=== PATIENT | male | born 1960 | race Caucasian/White ===

== ENCOUNTER 2019-05-14 19:03 | Emergency (ER) | payer BC, SELFPAY ==
--- NOTE | 2019-05-14 19:10 | DI.RAD.S_ITS ---
PROCEDURE: XR CHEST 1V INDICATIONS: chest pain TECHNIQUE: One view of the chest was acquired. COMPARISON: None. FINDINGS: Surgical changes and devices: None. Lungs and pleura: Lungs are clear. No pleural effusions or pneumothorax. Mediastinum: Mediastinal contours appear normal. Heart size is normal. Bones and chest wall: No suspicious bony lesions. Overlying soft tissues appear unremarkable. IMPRESSION: No acute cardiopulmonary abnormalities. No focal consolidation. Dictated by: Osmar Roberts M.D. on 05/14/2019 at 19:50 Approved by: Osmar Roberts M.D. on 05/14/2019 at 19:50
[2019-05-14 19:11] VITALS: BP 183/99; PULSE 117; RESP 22; TEMP 36.6; O2SAT 100
--- NOTE | 2019-05-14 19:12 | ED.CHESTPAIN ---
HPI - Chest Pain General Chief Complaint: Chest Pain Stated Complaint: chest pain Time Seen by Provider: 05/14/19 19:04 Source: patient and family Mode of arrival: Ambulatory Limitations: no limitations History of Present Illness HPI narrative: 58-year-old male former smoker with hyperlipidemia presents with a chief complaint of left anterior chest pressure with radiation to his left shoulder and axilla that started this morning at rest at about 10:00 a.m.. At worst it was a 6/10 and currently it is 1/10. It has not really gone away over the course of the day but it did start increasing again this evening. He denies provocation or palliation. He denies associated symptoms such as diaphoresis, dizziness, weakness, lightheadedness, shortness of breath. He did recently travel from the [facility] for a wedding. He denies any recent injuries or history of blood clot. He did have an extensive cardiac workup 2 years ago including a negative heart catheterization MD complaint: chest pain Onset (ago): hour(s) Duration: intermittent Onset: during rest Pain location: left chest Severity: moderate Relieving factors: nothing Exacerbating factors: nothing Treatments prior to arrival chest pain: none Related Data Home Medications Medication Instructions Recorded Confirmed atorvastatin 80 mg PO DAILY 05/14/19 05/14/19 Allergies Allergy/AdvReac Type Severity Reaction Status Date / Time No Known Drug Allergies Allergy Verified 05/14/19 19:14 Review of Systems Constitutional Constitutional: Denies chills, Denies fatigue, Denies fever(s), Denies frequent falls, Denies lethargy and Denies weakness Eyes Eyes: Denies change in vision, Denies eye discharge, Denies irritation and Denies loss of vision ENT Ears, Nose, Mouth, and Throat: Denies change in voice, Denies dizziness, Denies neck pain, Denies sore throat and Denies throat swelling Cardiovascular Cardiovascular: Reports chest pain, Denies irregular heart rhythm, Denies lightheadedness, Denies palpitations, Denies dyspnea, Denies dyspnea on exertion and Denies orthopnea Respiratory Respiratory: Denies cough, Denies dyspnea, Denies dyspnea on exertion and Denies wheezing Gastrointestinal Gastrointestinal: Denies abdominal pain, Denies change in bowel habits, Denies diarrhea, Denies nausea and Denies vomiting Genitourinary Genitourinary: Denies hematuria, Denies flank pain, Denies urinary incontinence and Denies urinary urgency Musculoskeletal Musculoskeletal: Denies back pain, Denies muscle weakness, Denies neck pain, Denies numbness and Denies tingling Integumentary/Breasts Skin/Breast: Denies pruritus, Denies erythema, Denies rash and Denies wounds Neurologic Neurologic: Denies behavioral changes, Denies confusion, Denies dizziness, Denies frequent falls, Denies loss of vision, Denies numbness, Denies tingling and Denies weakness Psychiatric Psychiatric: Denies anxiety, Denies behavioral changes, Denies confusion, Denies depression, Denies homicidal ideation and Denies suicidal ideation Endocrine Endocrine: Denies fatigue, Denies flushing and Denies palpitations Hematologic/Lymphatic Hematologic/Lymphatic: Denies easy bruising Allergic/Immunologic Allergic/Immunologic: Denies urticaria, Denies throat swelling and Denies wheezing Patient History Medical History High cholesterol (Acute) Social History Smoking Status: Former smoker Exam Narrative Exam Narrative: GENERAL: [58] year old patient appears stated age. Well-nourished, well-developed patient, in mild distress. HEAD: Atraumatic. Normocephalic. EYES: Pupils equal round and reactive. Extraocular motions intact. No scleral icterus. No injection or drainage. ENT: Nose without bleeding, purulent drainage. Throat without erythema, tonsillar hypertrophy or exudate. Airway patent. NECK: Trachea midline. Non tender CARDIOVASCULAR: Regular rate and rhythm without murmurs, gallops, or rubs. RESPIRATORY: Clear to auscultation. Breath sounds equal bilaterally. No wheezes, rales, or rhonchi. GASTROINTESTINAL: Abdomen soft, non-tender, nondistended. EXTREMITIES: No edema or joint tenderness. BACK: Nontender without deformity or crepitance. No flank tenderness. NEURO: AOx3. SKIN: No rash or erythema of visible areas Initial Vital Signs Initial Vital Signs: Vital Signs Temperature 97.8 F 05/14/19 19:11 Pulse Rate 117 H 05/14/19 19:11 Respiratory Rate 22 05/14/19 19:11 Blood Pressure 183/99 H 05/14/19 19:11 Pulse Oximetry 100 05/14/19 19:11 Scores HEART Score Heart Score history: Slightly Suspicious Heart Score EKG: Normal Heart Score Age: 45-64 years old Heart Score risk factors: 1-2 risk factors Heart Score troponin: < or = to normal limit Heart Score Total: 2 Course Course Course Narrative: Patient remains symptom-free. I have discussed this case with on-call Cardiology (Kerline) at [facility] and we sure the opinion that with a low heart score, no ongoing symptoms, nonischemic EKGs and a normal troponin that this patient is appropriate for discharge. He will start taking a baby aspirin daily and follow closely, he and understand return precautions and the importance of close follow-up, in the next few days for a likely outpatient stress test and echocardiogram. Orders Ordered: ED Orders 05/14/19 19:10 XR chest 1V Stat EKG-12 Lead Stat 05/14/19 19:15 B Type Natriuretic Peptide Stat Complete Blood Count AUTO DIFF Stat Comprehensive Metabolic Panel Stat D Dimer Stat Lipase Stat Troponin & CK Cardiac Panel Stat Discontinued Medications Aspirin (Aspirin Chew) 324 mg PO NOW ONE Stop: 05/14/19 19:11 Last Admin: 05/14/19 19:27 Dose: 324 mg Documented by: ISAIAS Sodium Chloride (Normal Saline 0.9%) 1,000 mls @ 150 mls/hr IV CONT ARIANNA Last Infusion: 05/14/19 20:18 Dose: 0 mls/hr Documented by: Admin: 05/14/19 19:27 Dose: 150 mls/hr Documented by: ISAIAS Metoprolol Tartrate (Lopressor) 5 mg IV NOW ONE Stop: 05/14/19 19:11 Last Admin: 05/14/19 19:45 Dose: 5 mg Documented by: ISAIAS Nitroglycerin (Nitrostat) 0.4 mg SL [id number] PRN PRN Reason: Chest Pain Last Admin: 05/14/19 19:26 Dose: 0.4 mg Documented by: ISAIAS Vital Signs Vital signs: Vital Signs - 8 hr 05/14/19 19:49 Pulse Rate 85 Respiratory Rate 17 Blood Pressure [Right Arm] 149/90 H Pulse Oximetry 96 MDM - Chest Pain Lab Data Result diagrams: 05/14/19 19:15 05/14/19 19:15 Labs: Lab Results 05/14/19 05/14/19 05/14/19 Range/Units 19:15 19:15 19:15 WBC 9.7 (4.5-11.0) X10^3/uL RBC 5.15 (4.5-5.9) X10^6/uL Hgb 17.0 (13.5-17.5) g/dL Hct 49.6 (41-53) % MCV 96.3 (80-100) fL MCH 32.9 (26-34) PG MCHC 34.2 (30-36) % RDW 14.0 (11.6-14.8) % Plt Count 248 (150-400) X10^3/uL Neut % (Auto) 76.7 H (50-75) % Lymph % (Auto) 15.2 L (25-40) % Vermilion % (Auto) 7.4 (3-14) % Eos % (Auto) 0.2 L (2-4) % Baso % (Auto) 0.5 (0-2) % Neut # (Auto) 7400 H (8714-7854) /uL Lymph # (Auto) 1500 (8629-7937) /uL Vermilion # (Auto) 700 (0-900) /uL Eos # (Auto) 0 (0-450) /uL Baso # (Auto) 100 (0-100) /uL D-Dimer < 200 (<230) ng/mL Sodium 139 (137-145) mmol/L Potassium 4.2 (3.4-5.1) mmol/L Chloride 99 (98-107) mmol/L Carbon Dioxide 26 (22-32) mmol/L BUN 11 (9-20) mg/dL Creatinine 0.90 (0.66-1.25) mg/dL Estimated GFR > 60.0 (>60) mL/min BUN/Creatinine Ratio 12.2 (6-22) Glucose 118 H (70-100) mg/dL Calcium 11.1 H (8.4-10.2) mg/dL Total Bilirubin 0.9 (0.2-1.3) mg/dL AST 37 (17-59) IU/L ALT 38 (<50) IU/L Alkaline Phosphatase 74 (38-126) U/L Total Creatine Kinase 184 H (55-170) U/L CK-MB (CK-2) 0.55 (<2.37) ng/mL CK-MB (CK-2) Rel Index 0.3 L (1.5-5.0) % Troponin I < 0.012 (0.01-0.034) ng/mL B-Natriuretic Peptide < 100 (<100) Total Protein 8.6 H (6.3-8.2) g/dL Albumin 5.3 H (3.5-5.0) g/dL Globulin 3.3 (1.7-4.1) g/dL Albumin/Globulin Ratio 1.6 (1.0-2.8) Lipase 177 (23-300) U/L ECG Data Attestation: I personally reviewed and interpreted this ECG as follows: Prior ECG tracings: not available for review Interpretation: EKG is normal sinus rhythm rate [90] and free of any signs of ischemia or ectopy. No ST segmental elevation or depression. No T wave inversions MDM Narrative Medical decision making narrative: Multiple causes of chest pain considered including VA, PE, pneumothorax, pneumonia, aortic dissection, and pleurisy. Patient reports no radiation, no diaphoresis, no provocation with exertion, and no vomiting Patient's symptoms improved or duration of stay with above-stated therapies. Findings and discharge diagnosis discussed with patient/family followed by verbalization of understanding Return precautions discussed with patient/family whom verbalize understanding. Discharge Plan Departure Patient Disposition: Home Clinical Impression: Atypical chest pain Discharge Date/Time: 05/14/19 20:19 Instructions: DI for Atypical Chest Pain Activity Restrictions/Additional Instructions: *You have been diagnosed with [atypical chest pain] *What to do: *Take medications as directed: Aspirin 81mg PO daily. Rolaids as needed. Avoid caffeine, alcohol and nicotine. *Follow up with your primary care provider in 2-3 days, call for an appointment. Let them know you were seen in the Emergency Department and that we ask that you be seen in follow up. It seems very likely that they will set you up with an outpatient stress test and/or echo *Return to ER if you should have any new, worsening or concerning symptoms, such as [increasing pain, shortness of breath, nausea, vomiting, sweating for no apparent reason or unexplained fatigue.] Prescriptions: No Action atorvastatin 80 mg tablet 80 mg PO DAILY RF: 0
[2019-05-14 19:26] VITALS: BP 183/99; PULSE 101
[2019-05-14 19:26] LABS: Add Manual Diff / Slide Review NO; Basophils Absolute Auto 100 /uL (0-100); Basophils Percent Auto 0.5 % (0-2); Eosinophils Absolute Auto 0 /uL (0-450); Eosinophils Percent Auto 0.2 % (2-4); Hematocrit 49.6 % (41-53); Lymphocytes Absolute Auto 1500 /uL (1100-4500); Lymphocytes Percent Auto 15.2 % (25-40); Mean Corpuscular HGB Conc 34.2 % (30-36); Mean Corpuscular Hemoglobin 32.9 PG (26-34); Mean Corpuscular Volume 96.3 fL (80-100); Monocytes Absolute Auto 700 /uL (0-900); Monocytes Percent Auto 7.4 % (3-14); Neutrophils Absolute Auto 7400 /uL (1500-7000); Neutrophils Percent Auto 76.7 % (50-75); Platelet Count 248 X10^3/uL (150-400); Red Blood Cell Count 5.15 X10^6/uL (4.5-5.9); White Blood Cell Count 9.7 X10^3/uL (4.5-11.0)
[2019-05-14] MEDS: NITROGLYCERIN 0.4 MG SL TAB SL (19:26)
[2019-05-14] MEDS: ASPIRIN 81 MG CHEW TAB 324 MG PO (19:27)
[2019-05-14] MEDS: SODIUM CHLORIDE 0.9% 1,000 ML 150 ML IV (19:27)
[2019-05-14 19:33] LABS: Alanine Aminotransferase 38 IU/L (<50); Albumin 5.3 g/dL (3.5-5.0); Albumin Globulin Ratio 1.6 (1.0-2.8); Alkaline Phosphatase 74 U/L (38-126); Aspartate Aminotransferase 37 IU/L (17-59); BUN Creatinine Ratio 12.2 (6-22); Bilirubin Total 0.9 mg/dL (0.2-1.3); Blood Urea Nitrogen 11 mg/dL (9-20); Calcium 11.1 mg/dL (8.4-10.2); Carbon Dioxide 26 mmol/L (22-32); Chloride 99 mmol/L (98-107); Creatine Kinase 184 U/L (55-170); D Dimer < 200 ng/mL (<230); Estimated Glomerular Filt Rate > 60.0 mL/min (>60); Globulin 3.3 g/dL (1.7-4.1); Glucose 118 mg/dL (70-100); HEMOLYSIS 46 (0-50); Lipase 177 U/L (23-300); Potassium 4.2 mmol/L (3.4-5.1); Sodium 139 mmol/L (137-145); Total Protein 8.6 g/dL (6.3-8.2)
[2019-05-14 19:45] LABS: Troponin I < 0.012 ng/mL (0.01-0.034)
[2019-05-14] MEDS: METOPROLOL TARTRATE 5 MG/5 ML INJ IV (19:45)
[2019-05-14 19:48] LABS: CKMB % Relative Index 0.3 % (1.5-5.0); Creatine Kinase MB 0.55 ng/mL (<2.37)
[2019-05-14 19:49] VITALS: BP 149/90; PULSE 85; RESP 17; O2SAT 96
[2019-05-14 19:49] LABS: B Type Natriuretic Peptide < 100 (<100)
== END 2019-05-14 20:19 | disposition home or self-care (01) ==
PROVIDERS: Emergency Provider Emergency Medicine
DX: R07.89 Other chest pain (principal)
CPT/HCPCS: 36415; 71045; 80053; 82550; 82553; 83690; 83880; 84484; 85025; 85379; 93005; 96361; 96374; 99283; 99285